=== PATIENT | female | born 2000 | race Hispanic/Latino ===

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

== ENCOUNTER 2023-04-11 18:30 | Emergency (ER) | payer MEDICAID ==
[~2023-04-11] VITALS: Ht 152.4 cm; Wt 45.4 kg
[2023-04-11] MEDS ORDERED: ONDANSETRON 4MG INJ IVP ONE (19:30)
[2023-04-11 19:54] LABS: BASOPHILS # (AUTO) 0.01 K/uL (0.00-0.20); BASOPHILS % (AUTO) 0.1 % (0.0-5.0); HEMATOCRIT 36.3 % (36-48); IMMATURE GRANULOCYTE ABSOLUTE 0.04 K/uL (0-1); LYMPHOCYTES # (AUTO) 0.8 K/uL (1.0-4.8); LYMPHOCYTES % (AUTO) 6.3 % (21.0-51.0); MEAN CORPUSCULAR HEMOGLOBIN 30.4 pg (27.0-33.0); MEAN CORPUSCULAR HGB CONC 34.7 g/dL (32.0-36.0); MEAN CORPUSCULAR VOLUME 87.5 fL (79-99); MONOCYTES # (AUTO) 0.1 K/uL (0.1-1.0); MONOCYTES % (AUTO) 0.9 % (3.0-13.0); NEUTROPHILS # (AUTO) 11.8 K/uL (1.8-7.7); NEUTROPHILS % (AUTO) 92.4 % (40.0-77.0); PLATELET COUNT (AUTO) 279 K/uL (130-400); RED BLOOD CELL COUNT(AUTO) 4.15 MIL/uL (4.00-5.50); RED CELL DISTRIBUTION WIDTH 12.1 % (11.0-15.5); WHITE BLOOD COUNT (AUTO) 12.8 K/uL (4.8-10.8)
[2023-04-11] MEDS ORDERED: 0.9%NACL 1000ML 1,000 ML IV ONE (20:00)
[2023-04-11 20:03] LABS: CREATININE 0.7 mg/dL (0.5-1.5); POTASSIUM 3.4 mmol/L (3.5-5.1)
[2023-04-11] MEDS ORDERED: POTASSIUM BICARB/CIT AC 25 MEQ TABLET.EFF PO ONE (20:30)
[2023-04-11 20:34] LABS: ALBUMIN 3.9 g/dL (3.5-5.0); BILIRUBIN,TOTAL 0.6 mg/dL (0.2-1.0); TOTAL PROTEIN, SERUM 7.8 g/dL (6.0-8.3)
[2023-04-11] MEDS ORDERED: DOXY1TAB3 PO (21:54)
[2023-04-11 22:18] LABS: APPEARANCE,URINE CLOUDY (CLEAR); BILIRUBIN,URINE NEGATIVE (NEGATIVE); COLOR,URINE YELLOW (YELLOW); GLUCOSE, URINE (UA) 30 mg/dL (NEGATIVE); HCG,QUALITATIVE URINE POSITIVE (NEGATIVE); KETONES,URINE 150 mg/dL (NEGATIVE); LEUKOCYTE ESTERASE ,URINE NEGATIVE Leu/uL (NEGATIVE); NITRATE,URINE NEGATIVE (NEGATIVE); OCCULT BLOOD,URINE NEGATIVE (NEGATIVE); PH,URINE 6.5 (5.0-8.0); PROTEIN,URINE 100 mg/dL (NEGATIVE); UROBILINOGEN,URINE 0.2 mg/dL (0.2-1.0)
[2023-04-11 22:19] LABS: ADD UA MICROSCOPIC YES
[2023-04-11 22:22] VITALS: BP 117/58; PULSE 65; RESP 17; O2SAT 96
[2023-04-11 22:22] LABS: BACTERIA,URINE RARE /HPF (None Seen); MUCUS,URINE MOD LPF (None Seen); SQUAMOUS EPITHELIAL CELL,UR MOD /HPF (0-2)
== END 2023-04-11 22:27 | disposition home or self-care (01) ==
LOC: EDH 18:30
DX: O21.0 Mild hyperemesis gravidarum (principal)
CPT/HCPCS: 99285; 96374; 76801; 96375; 80053; 84702; 83690; 85025; 86900; 86901; 87088; 81001; 81025; 36415; J7030; J2405

== ENCOUNTER 2024-05-11 11:55 | Emergency (ER) | payer MEDICAID ==
[~2024-05-11] VITALS: Ht 160 cm; Wt 45.4 kg
[~2024-05-11 11:55] MED LIST: DOXY1TAB3 PO
[2024-05-11 12:27] LABS: APPEARANCE,URINE TURBID (CLEAR); BILIRUBIN,URINE 0.5 mg/dL (NEGATIVE); COLOR,URINE YELLOW (YELLOW); GLUCOSE, URINE (UA) NEGATIVE (NEGATIVE); KETONES,URINE >=80 mg/dL (NEGATIVE); LEUKOCYTE ESTERASE ,URINE NEGATIVE Leu/uL (NEGATIVE); NITRATE,URINE NEGATIVE (NEGATIVE); OCCULT BLOOD,URINE MODERATE (NEGATIVE); PH,URINE 6.5 (5.0-8.0); PROTEIN,URINE 100 mg/dL (NEGATIVE); UROBILINOGEN,URINE 3 mg/dL (0.2-1.0)
[2024-05-11 12:36] LABS: BASOPHILS # (AUTO) 0.06 K/uL (0.00-0.20); BASOPHILS % (AUTO) 0.6 % (0.0-5.0); EOSINOPHILS # (AUTO) 0.01 K/uL (0.00-0.70); EOSINOPHILS % (AUTO) 0.1 % (0.0-8.0); HEMATOCRIT 42.1 % (36-48); IMMATURE GRANULOCYTE ABSOLUTE 0.03 K/uL (0-1); LYMPHOCYTES # (AUTO) 2.1 K/uL (1.0-4.8); LYMPHOCYTES % (AUTO) 20.3 % (21.0-51.0); MEAN CORPUSCULAR HEMOGLOBIN 29.3 pg (27.0-33.0); MEAN CORPUSCULAR HGB CONC 34.4 g/dL (32.0-36.0); MEAN CORPUSCULAR VOLUME 85.1 fL (79-99); MONOCYTES # (AUTO) 0.4 K/uL (0.1-1.0); MONOCYTES % (AUTO) 3.9 % (3.0-13.0); NEUTROPHILS # (AUTO) 7.6 K/uL (1.8-7.7); NEUTROPHILS % (AUTO) 74.8 % (40.0-77.0); PLATELET COUNT (AUTO) 299 K/uL (130-400); RED BLOOD CELL COUNT(AUTO) 4.95 MIL/uL (4.00-5.50); RED CELL DISTRIBUTION WIDTH 13.4 % (11.0-15.5); WHITE BLOOD COUNT (AUTO) 10.1 K/uL (4.8-10.8)
[2024-05-11 12:46] LABS: CREATININE 0.9 mg/dL (0.5-1.0); POTASSIUM 3.1 mmol/L (3.5-5.1)
[2024-05-11 12:51] LABS: ADD UA MICROSCOPIC YES
[2024-05-11 12:58] LABS: BACTERIA,URINE RARE /HPF (None Seen); MUCUS,URINE MANY LPF (None Seen); SQUAMOUS EPITHELIAL CELL,UR RARE /HPF (0-2); UNCLASSIFIED CRYSTAL 176 /HPF (None Seen); WBC CLUMP MOD /HPF (0-1); WBC,URINE 26-50 /HPF (0-1)
[2024-05-11] MEDS: 0.9%NACL 1000ML 1,000 ML IV ONE (13:22)
[2024-05-11] MEDS: FAMOTIDINE 20MG VIAL IV ONE (13:22)
[2024-05-11] MEDS: ondanSETRON 4MG INJ IVP ONE (13:22)
[2024-05-11] MEDS: PoTASSium BIcarbonate/CIT AC 25 MEQ TABLET.EFF PO ONE (14:03)
[2024-05-11] MEDS: cefTRIAXone 1G VIAL IM ONE (14:04)
[2024-05-11] MEDS ORDERED: OMEP40CA21 PO (15:02)
[2024-05-11] MEDS ORDERED: CEPH250S PO (15:02)
[2024-05-11 15:21] VITALS: BP 119/76; PULSE 66; RESP 14; TEMP 98.6; O2SAT 99
== END 2024-05-11 15:35 | disposition home or self-care (01) ==
LOC: EDH 11:55
DX: K29.00 Acute gastritis without bleeding (principal); N39.0 Urinary tract infection, site not specified; R11.2 Nausea with vomiting, unspecified
CPT/HCPCS: 99284; 96374; 96361; 96375; 80048; 85025; 87086; 81001; 81025; 36415; 96372; J0696; J2405; S0028; J3490